=== PATIENT | male | born 1960 | race Caucasian/White ===

== ENCOUNTER 2024-08-29 11:53 | Observation (INO) | payer BC, OTHER ==
[~2024-08-29] VITALS: Ht 177.8 cm; Wt 106.8 kg
[~2024-08-29 11:53] MED LIST: ASPI-41 PO; ATOR10TA PO; COL100C PO; NORCO10T PO
[2024-08-29 12:16] LABS: BASOPHILS % (AUTO) 0.3 % (0-1); EOSINOPHILS # (AUTO) 0.3 X10'3 (0-0.9); EOSINOPHILS % (AUTO) 3.8 % (0-6); HEMATOCRIT 45.1 % (42.0-52.0); HEMOGLOBIN 15.2 g/dl (14.0-17.9); LYMPHOCYTES # (AUTO) 2.4 X10'3 (1.1-4.8); LYMPHOCYTES % (AUTO) 30.4 % (21-51); MEAN CORPUSCULAR HEMOGLOBIN 31.5 PG (27.0-31.0); MEAN CORPUSCULAR HGB CONC 33.6 g/dL (33.0-36.5); MEAN CORPUSCULAR VOLUME 93.9 FL (78-98); MEAN PLATELET VOLUME 9.2 FL (7.4-10.4); MONOCYTES # (AUTO) 0.6 X10'3 (0-0.9); MONOCYTES % (AUTO) 7.2 % (2-12); NEUTROPHILS # (AUTO) 4.7 X10'3 (1.8-7.7); NEUTROPHILS % (AUTO) 58.3 % (42-75); PLATELET COUNT 171 X10'3 (140-440); RED BLOOD COUNT 4.81 X10'6 (4.70-6.10); RED CELL DISTRIBUTION WIDTH 12.8 % (11.5-14.5)
[2024-08-29 12:35] LABS: ALANINE AMINOTRANSFERASE 21 U/L (12-78); ALBUMIN 3.8 G/DL (3.4-5.0); ALBUMIN/GLOBULIN RATIO 1.1 (1.1-1.5); ALKALINE PHOSPHATASE 79 IU/L (46-116); ANION GAP 7 (8-16); ASPARTATE AMINO TRANSFERASE 26 U/L (10-37); BILIRUBIN,TOTAL 0.7 MG/DL (0.1-1.0); BLOOD UREA NITROGEN 13 MG/DL (7-18); BUN/CREATININE RATIO 13.1 (10.0-20.0); CALCIUM 9.2 MG/DL (8.5-10.1); CHLORIDE 107 MMOL/L (99-107); CREATININE 0.99 MG/DL (0.60-1.10); GLUCOSE 95 MG/DL (70-104); POTASSIUM 3.9 MMOL/L (3.5-5.1); SODIUM 143 MMOL/L (135-145); TOTAL CARBON DIOXIDE 29.3 MMOL/L (24-32); TOTAL PROTEIN 7.4 G/DL (6.4-8.2); eCRCL 80 ML/MIN; eGFR 77 ML/MIN
[2024-08-29 12:42] LABS: PRO BRAIN NATRIURETIC PEPTIDE 123 PG/ML (0-125)
[2024-08-29] MEDS ORDERED: magnesium sulf-water 2g/50mL 50 ML IV PRN (14:45)
[2024-08-29] MEDS ORDERED: magnesium Cl slow-release 64mg tablet PO PRN (14:45)
[2024-08-29] MEDS ORDERED: HYDROcodone/acetaminophen 5mg/325mg tablet PO PRN (14:45)
[2024-08-29] MEDS ORDERED: potassium Cl 40MEQ/1/2NS 520ml 520 ML IV PRN (14:45)
[2024-08-29] MEDS ORDERED: magnesium sulf-water 4G/100mL 100 ML IV PRN (14:45)
[2024-08-29] MEDS ORDERED: ondansetron/PF 4mg/2ml inj IV PRN (14:45)
[2024-08-29] MEDS ORDERED: acetaminophen 325mg tablet PO PRN (14:45)
[2024-08-29] MEDS ORDERED: potassium Cl 20 mEq SR tablet PO PRN ×2 (14:45)
[2024-08-29] MEDS ORDERED: ESCI20TA39 PO (18:34)
[2024-08-29] MEDS ORDERED: ATOR-2 PO (18:34)
[2024-08-29] MEDS ORDERED: LOSA50TA64 PO (18:34)
[2024-08-29] MEDS ORDERED: TIRZ10PE SUBCUT (18:34)
[2024-08-29] MEDS ORDERED: EZET10TA48 PO (18:34)
[2024-08-29] MEDS ORDERED: ASPI-611 PO (18:34)
[2024-08-29] MEDS ORDERED: BUPR450T5 PO (18:34)
[2024-08-29] MEDS: K and/or MAG REPLACEMENT MC SCH (20:00)
[2024-08-29 20:17] VITALS: BP_SYST 134; BP_SYST 144; BP_DIAS 92; BP_DIAS 93; PULSE 62; PULSE 76
[2024-08-29 20:45] VITALS: RESP 16; O2SAT 96
[2024-08-29 23:29] VITALS: BP 132/85; PULSE 76; RESP 20; TEMP 97.8; O2SAT 98
[2024-08-30 02:00] VITALS: BP 125/88; PULSE 67; RESP 14; TEMP 97.6; O2SAT 97
[2024-08-30 06:00] VITALS: BP 126/80; PULSE 63; RESP 18; TEMP 97.7; O2SAT 96
[2024-08-30 07:53] LABS: BASOPHILS # (AUTO) 0.1 X10'3 (0-0.2); BASOPHILS % (AUTO) 1.2 % (0-1); EOSINOPHILS # (AUTO) 0.2 X10'3 (0-0.9); EOSINOPHILS % (AUTO) 3.8 % (0-6); HEMATOCRIT 43.8 % (42.0-52.0); HEMOGLOBIN 14.9 g/dl (14.0-17.9); LYMPHOCYTES # (AUTO) 1.8 X10'3 (1.1-4.8); LYMPHOCYTES % (AUTO) 30.6 % (21-51); MEAN CORPUSCULAR HEMOGLOBIN 32.1 PG (27.0-31.0); MEAN CORPUSCULAR HGB CONC 34.1 g/dL (33.0-36.5); MEAN CORPUSCULAR VOLUME 94.1 FL (78-98); MEAN PLATELET VOLUME 9.3 FL (7.4-10.4); MONOCYTES # (AUTO) 0.5 X10'3 (0-0.9); MONOCYTES % (AUTO) 8.5 % (2-12); NEUTROPHILS # (AUTO) 3.3 X10'3 (1.8-7.7); NEUTROPHILS % (AUTO) 55.9 % (42-75); PLATELET COUNT 204 X10'3 (140-440); RED BLOOD COUNT 4.65 X10'6 (4.70-6.10); WHITE BLOOD COUNT 5.9 X10'3 (4.5-11.0)
[2024-08-30 07:57] LABS: ALBUMIN 3.3 G/DL (3.4-5.0); ANION GAP 6 (8-16); BLOOD UREA NITROGEN 14 MG/DL (7-18); BUN/CREATININE RATIO 13.9 (10.0-20.0); CALCIUM 8.3 MG/DL (8.5-10.1); CHLORIDE 106 MMOL/L (99-107); CREATININE 1.01 MG/DL (0.60-1.10); GLUCOSE 104 MG/DL (70-104); MAGNESIUM 2.1 MG/DL (1.5-2.4); POTASSIUM 3.6 MMOL/L (3.5-5.1); SODIUM 140 MMOL/L (135-145); TOTAL CARBON DIOXIDE 28.5 MMOL/L (24-32); eCRCL 78 ML/MIN; eGFR 75 ML/MIN
[2024-08-30 08:00] VITALS: BP_SYST 150; BP_SYST 153; BP_SYST 155; BP_DIAS 102; BP_DIAS 103; BP_DIAS 96; PULSE 75; PULSE 85; RESP 18; O2SAT 96
[2024-08-30] MEDS: ESCITALOPRAM 10 mg tablet 10 MG TABLET PO SCH (08:08)
[2024-08-30] MEDS: ezetimibe 10mg tablet PO SCH (08:09)
[2024-08-30] MEDS: BUPROPION HCL 150MG XL 24 HR 150 MG TAB PO SCH (08:09)
[2024-08-30] MEDS: aspirin 81mg, enteric-coated 1 TAB TABLET.DR PO SCH (08:09)
[2024-08-30] MEDS: atorvastatin 20mg tablet PO SCH (08:09)
[2024-08-30] MEDS: losartan 50mg tablet PO SCH (08:10)
[2024-08-30 15:00] VITALS: BP 132/84; PULSE 73; RESP 18; TEMP 98.8; O2SAT 96
== END 2024-08-30 18:30 | disposition home or self-care (01) ==
LOC: ER 11:54 → ED HOLD 14:46 → PCU 3S 19:50
PROVIDERS: ADMIT Internal Medicine; ATTEND Internal Medicine
DX: R42 Dizziness and giddiness (principal); R94.31 Abnormal electrocardiogram [ECG] [EKG]; R61 Generalized hyperhidrosis; R07.9 Chest pain, unspecified; I10 Essential (primary) hypertension; R55 Syncope and collapse; F32.A Depression, unspecified; E78.5 Hyperlipidemia, unspecified; E11.9 Type 2 diabetes mellitus without complications; I25.10 Atherosclerotic heart disease of native coronary artery without angina pectoris; Z95.1 Presence of aortocoronary bypass graft; Z79.82 Long term (current) use of aspirin; Z79.899 Other long term (current) drug therapy
CPT/HCPCS: 36415; 71045; 80048; 80053; 83735; 83880; 84484; 85025; 87081; 93005; 97034; 97116; 97161; 99291; A6258; G0378